=== PATIENT | male | born 1985 | race African-American/Black ===

== ENCOUNTER 2016-12-10 10:49 | Emergency (ER) | payer OTHER ==
[2016-12-10 11:02] VITALS: BP 145/49
--- NOTE | 2016-12-10 11:02 | UC ---
Eye Complaint HPI - HPI Summary HPI Summary: patient has developed swelling and pain on the bottom eye lid of the right eye. no pain with eye movement, pain located on tim swollen area only, no fever. 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, Swelling - Allergies/Home Medications Allergies/Adverse Reactions: Allergies Allergy/AdvReac Type Severity Reaction Status Date / Time No Known Allergies Allergy Verified 12/10/16 10:57 PMH/Surg Hx/FS Hx/Imm Hx Previously Healthy: Yes - Surgical History Surgical History: None - Family History Known Family History: Positive: Hypertension - Social History Occupation: Employed Full-time Review of Systems Constitutional: Negative Skin: Other - swelling under the eye Eyes: Other - right eye ENT: Negative Respiratory: Negative Cardiovascular: Negative Gastrointestinal: Negative Genitourinary: Negative Motor: Negative Neurovascular: Negative Musculoskeletal: Negative Neurological: Negative Psychological: Negative Is Patient Immunocompromised?: No All Other Systems Reviewed And Are Negative: Yes Physical Exam Triage Information Reviewed: Yes Appearance: Well-Nourished, Ill-Appearing, Pain Distress Vital Signs Reviewed: Yes Eyes: Positive: Conjunctiva Inflamed, Other: - PERRLA, EOMI and non tender with movment, sclear slightly red and irritated, moderate swelling and erythema in the lower lid, tenderness on palpation. ENT: Positive: Pharynx normal, TMs normal Dental Exam: Normal Neck exam: Normal Respiratory Exam: Normal Respiratory: Positive: Chest non-tender, Lungs clear, Normal breath sounds Cardiovascular Exam: Normal Cardiovascular: Positive: RRR, No Murmur, Pulses Normal Abdominal Exam: Normal Abdomen Description: Positive: Nontender, No Organomegaly, Soft Bowel Sounds: Positive: Present Musculoskeletal Exam: Normal Musculoskeletal: Positive: Strength Intact, ROM Intact, No Edema Neurological Exam: Normal Neurological: Positive: Alert, Muscle Tone Normal Psychological Exam: Normal Skin Exam: Normal Eye Complaint Course/Dx - Course Course Of Treatment: hx obtained, exam performed, meds reviewed, treated for preseptal cellulitis - Differential Dx/Diagnosis Differential Diagnosis/HQI/PQRI: Conjunctivitis, Periorbital Cellulitis, Orbital Cellulitis Provider Diagnoses: preseptal cellulitis right eye Discharge - Discharge Plan Condition: Stable Disposition: HOME Prescriptions: Sulfamethox/Trimethoprim DS* [Bactrim DS 800/160 TAB*] 1 tab PO BID #20 tab Patient Education Materials: Periorbital Cellulitis in Adults (ED) Referrals: No Primary Care Phys,NOPCP [Primary Care Provider] - Additional Instructions: 1. take the medication as prescribed. 2. Follow up with your opthamologist if no improvement in the next 24 hours.
== END 2016-12-10 11:31 | disposition home or self-care (01) ==
LOC: UCCORT 10:49
DX: L03.213 Periorbital cellulitis (principal)
CPT/HCPCS: 99202; G0463